=== PATIENT | female | born 1945 | race Caucasian/White ===

== ENCOUNTER 2016-10-14 10:56 | Emergency (ER) | payer MEDICARE ==
[2016-10-14 11:49] LABS: BASOPHIL 0.9 % (0-2); EOSINOPHIL 0.9 % (0-7); HCT 28.4 % (37.0-47.0); HGB 9.4 g/dl (12.5-16.0); LYMPHOCYTE 28.4 % (15-48); MCH 32.6 pg (25.0-31.0); MCHC 33.1 g/dL (32.0-36.0); MCV 98.6 fL (78.0-100.0); MONOCYTE 1.8 % (0-12); MPV 8.7 fL (6.0-9.5); PLT 174 K/uL (150-400); RBC 2.88 M/uL (4.20-5.40); RDW 18.2 % (11.5-14.0)
[2016-10-14 12:06] LABS: WBC 1.1 K/uL (4.0-10.5)
[2016-10-14 12:09] LABS: BILIRUBIN NEGATIVE (NEGATIVE); BLOOD NEGATIVE Ery/uL (NEGATIVE); CLARITY CLEAR (CLEAR); COLOR YELLOW (YELLOW); GLUCOSE (U) NORMAL (NORMAL); KETONE (U) NEGATIVE (NEGATIVE); LEUKOCYTES NEGATIVE Leu/uL (NEGATIVE); NITRITE NEGATIVE (NEGATIVE); PROTEIN NEGATIVE (NEGATIVE); UROBILINOGEN 0.2 mg/dL (0.2-1.0); pH 7.5 (5.0-9.0)
[2016-10-14 12:10] LABS: ALBUMIN 3.7 g/dL (3.4-4.8); BILIRUBIN - TOTAL 0.5 mg/dL (0.1-1.0); CREATININE 0.7 mg/dL (0.5-1.0); GLOBULIN (CALCULATION) 2.5 g/dL (2.2-4.2); POTASSIUM 3.2 mmol/L (3.5-5.1); TOTAL PROTEIN 6.2 g/dL (6.4-8.3)
== END 2016-10-14 13:03 | disposition home or self-care (01) ==
LOC: FER 10:56
PROVIDERS: Emergency Medicine
DX: R07.9 Chest pain, unspecified (principal); E11.9 Type 2 diabetes mellitus without complications; I25.10 Atherosclerotic heart disease of native coronary artery without angina pectoris; J44.9 Chronic obstructive pulmonary disease, unspecified; F17.200 Nicotine dependence, unspecified, uncomplicated; Z88.2 Allergy status to sulfonamides; Z88.1 Allergy status to other antibiotic agents; Z88.5 Allergy status to narcotic agent; Z88.8 Allergy status to other drugs, medicaments and biological substances; Z79.84 Long term (current) use of oral hypoglycemic drugs; Z79.82 Long term (current) use of aspirin; Z79.899 Other long term (current) drug therapy; Z95.5 Presence of coronary angioplasty implant and graft
CPT/HCPCS: 36415; 71020; 80053; 81003; 84484; 85025; 93005